=== PATIENT | female | born 1970 | race Caucasian/White ===

== ENCOUNTER → 2016-12-18 | Outpatient (CLI) | payer BC ==
--- NOTE | 2016-12-18 10:58 | DIAGNOSTIC IMAGING REPORT ---
L HAND MIN 3 VIEWS ROUTINE, L WRIST MIN 3 VIEWS ROUTINE HISTORY: 46 years-old Female [id number] acute left hand and wrist pain status post recent fall. COMPARISON: None available. TECHNIQUE: 3 views of the left hand and 4 views of the left wrist. FINDINGS: HAND: Mild first carpometacarpal osteoarthritis. No acute fracture or dislocation. The mild dorsal wrist soft tissue swelling. WRIST: Mild first carpometacarpal osteoarthritis. Scaphoid appears intact. No acute fracture or dislocation. Distal radius and ulna appear intact. There is mild dorsal wrist soft tissue swelling. IMPRESSION: Mild dorsal wrist soft tissue swelling without acute fracture or dislocation identified involving the left hand or wrist. The above report was generated using voice recognition software. It may contain grammatical, syntax or spelling errors. Electronically signed by: Duy Hermosillo M.D. 12/18/2016 10:56 AM Dictated Date/Time: 12/18/2016 10:48 AM
== END | disposition home or self-care (01) ==
LOC: C.RAD1850 10:27
PROVIDERS: ATTEND Family Medicine
DX: S69.90XA Unspecified injury of unspecified wrist, hand and finger(s), initial encounter (principal); X58.XXXA Exposure to other specified factors, initial encounter